=== PATIENT | female | born 2000 | race Caucasian/White ===

== ENCOUNTER → 2020-09-24 | Outpatient (CLI) | payer OTHER ==
[~2020-09-24] MED LIST: BUPR150T8 PO; HYDR-2761 PO; METF500T16 PO; MISO200T16 PO; NORE-91 PO
[2020-09-24 10:53] LABS: BASO % 0 % (0-3); EOS # 0.1 x10^3/uL (0.0-0.7); EOS % 1 % (0-3); HEMATOCRIT 30.6 % (36.0-47.0); HEMOGLOBIN 9.3 g/dL (12.0-15.5); LYMPH # 3.8 x10^3/uL (1.0-4.8); LYMPH % 29 % (24-48); MEAN CORPUSCULAR HEMOGLOBIN 20 pg (25-35); MEAN CORPUSCULAR HGB CONC 30 g/dL (31-37); MEAN CORPUSCULAR VOLUME 65 fL (79-100); MONO # 0.7 x10^3/uL (0.0-1.1); MONO % 5 % (0-9); NEUT # 8.7 x10^3/uL (1.8-7.7); NEUT % 65 % (31-73); PLATELET COUNT 555 x10^3/uL (140-400); RED CELL DISTRIBUTION WIDTH 16.1 % (11.5-14.5); WHITE BLOOD COUNT 13.3 x10^3/uL (4.0-11.0)
[2020-09-24 12:05] LABS: ANISOCYTOSIS PRESENT; HYPOCHROMIA PRESENT; MICROCYTOSIS PRESENT; PLT ESTIMATE INCREASED (ADEQUATE)
== END ==
LOC: SURGPAT 10:18
PROVIDERS: ATTEND Obstetrics & Gynecology
DX: Z01.818 Encounter for other preprocedural examination (principal)
CPT/HCPCS: 36415; 85025

== ENCOUNTER 2020-09-29 06:03 | Day surgery (SDC) | payer SELFPAY ==
[~2020-09-29 06:03] MED LIST changes: -HYDR-2761 PO; +HYDROmorphone 2 MG/ML VIAL IVP PRN; +IV RINGERS,LACTATED 1000ML 1,000 ML IV SCH; +MORPHINE SULFATE 2 MG/ML VIAL. IVP PRN; +PROCHLORPERAZINE 10 MG/2 ML VIAL. IVP PRN; +fentaNYL PF VIAL 100 MCG/2 ML VIAL IVP PRN
[2020-09-29] MEDS ORDERED: INSULIN LISPRO 100 UNIT/ML 3ML VIAL for OP,RR ONLY. SQ PRN (06:45)
[2020-09-29] MEDS ORDERED: INSULIN LISPRO 100 UNIT/ML 3ML VIAL for OP,RR ONLY. SQ ONE (06:50)
[2020-09-29] MEDS ORDERED: SEVOFLURANE 61 TO 120 MINUTES. IH ONE (07:01)
[2020-09-29] MEDS ORDERED: fentaNYL PF VIAL 100 MCG/2 ML VIAL ONE ×2 (07:01→09:01)
[2020-09-29] MEDS ORDERED: LIDOCAINE 2% PF 5 ML VIAL. ONE (07:02)
[2020-09-29] MEDS ORDERED: PROPOFOL 10 MG/ML (20ML) VIAL. IV ONE (07:02)
[2020-09-29] MEDS ORDERED: DEXAMETHASONE SOD PHOS 4 MG/ML VIAL ONE (07:02)
[2020-09-29] MEDS ORDERED: MIDAZOLAM HCL/PF 2 MG/2 ML VIAL. ONE (07:02)
[2020-09-29] MEDS ORDERED: ONDANSETRON PF 4 MG/2 ML VIAL. ONE (07:02)
[2020-09-29] MEDS ORDERED: MAG HYDROX/ALUMINUM HYD/SIMETH 30 ML ORAL.SUSP PO PRN (08:45)
[2020-09-29] MEDS ORDERED: NALOXONE 0.4 MG/ML VIAL. IV PRN (08:45)
[2020-09-29] MEDS ORDERED: CALCIUM CARBONATE 500 MG TAB.CHEW PO PRN (08:45)
[2020-09-29] MEDS ORDERED: SIMETHICONE 80 MG TAB.CHEW PO PRN (08:45)
[2020-09-29] MEDS ORDERED: 0.9 % SODIUM CHLORIDE 10 ML DISP.SYRIN. IV PRN (08:45)
[2020-09-29] MEDS ORDERED: diphenhydrAMINE 50 MG/ML VIAL IV PRN (08:45)
[2020-09-29] MEDS ORDERED: HYDROcodone/APAP 5/325MG 1 TAB TABLET PO PRN (08:45)
[2020-09-29] MEDS ORDERED: diphenhydrAMINE HCL 25 MG CAPSULE PO PRN (08:45)
--- NOTE | 2020-09-29 08:45 | PDOC ---
BRIEF OPERATIVE NOTE Date: Sep 29, 2020 Pre-Op Diagnosis DUB with anemia Post-Op Diagnosis same Procedure Performed hysteroscopy D&C with myosure reach Surgeon Dr. Evelia Crook Anesthesiologist Dr. Levy Anesthesia Type: General Blood Loss 10cc IV Fluid see anesthesia records Urine Output straight cath prior Specimens Obtained endometrial currettings Findings uterus 8cm with thickened fluffy white tissue; no fibroids or uterine abnormalities seen Complications none Operative Note fluid def 250cc cut time 6:02 [id number] EVELIA CROOK MD Sep 29, 2020 08:45
[2020-09-29] MEDS ORDERED: HYDR-2761 PO (08:56)
--- NOTE | 2020-09-29 09:02 | OP ---
DATE OF SURGERY: 09/29/2020 PREOPERATIVE DIAGNOSES: Dysfunctional uterine bleeding with anemia and endometrial thickening on sonogram. POSTOPERATIVE DIAGNOSES: Dysfunctional uterine bleeding with anemia and endometrial thickening on sonogram. PROCEDURE: Hysteroscopy, D and C with MyoSure REACH. SURGEON: Jude Crook MD ESTATE ADMINISTRATOR: OR personnel. ANESTHESIOLOGIST: Ulises Levy MD ANESTHESIA: General. BLOOD LOSS: 5-10 mL. URINE OUTPUT: With a straight cath prior to procedure. INTRAVENOUS FLUIDS: Please see anesthesia records. SPECIMEN: Endometrial curettings. FINDINGS: A uterus that sounded to 8 cm with a thickened fluffy white tissue. No gross uterine abnormalities were seen. No fibroids, no distortion in the uterine wall. COMPLICATIONS: None. DESCRIPTION OF PROCEDURE: This patient was taken to the operating room where general anesthesia was placed. The patient was placed in a dorsal lithotomy position in Terry stirrups. The patient's vagina was prepped and draped in the normal sterile fashion and a straight cath urine was done prior to my arrival. Upon my arrival, a timeout was performed. Once everyone agreed on the patient, the site, the procedure, the procedure was initiated. An open bivalve speculum was placed in the patient's vagina. Single-tooth tenaculum was used to grasp the anterior lip of the cervix. The Hegar dilators were used to dilate up to a 5-6 and the 7 easily passed for the scope. She sounded to 8 cm. At this point, the MyoSure scope was primed, white balanced, and placed in with the above findings. The MyoSure REACH was used and placed through the operating channel and a D and C was done under direct visualization. Once it was done, both tubal ostia were seen. Again, no gross uterine abnormalities, no fibroids, just thickened white fluffy tissue was seen, but we were able to clean out the endometrial cavity and the endometrial curettings will be sent for pathology. Once all of this was done, the procedure was ended. The tenaculum was removed. There was scant bleeding from the tenaculum sites and all counts were correct by OR personnel. The patient was awakened from the anesthesia and is being brought to recovery room in stable condition. JUDE CROOK MD DR: CHRISTELLE/lazarus JOB#: [id number] / [id number]
[2020-09-29] MEDS: fentaNYL PF VIAL 100 MCG/2 ML VIAL IVP PRN ×2 (09:05→09:26)
[2020-09-29 09:34] VITALS: BP 137/70
--- NOTE | 2020-10-01 15:12 | PATHOLOGY ---
[facility] Accession Number: [id number] . 01 Material submitted: . endometrium - ENDOMETRIAL CURETTINGS . 01 Clinical history: . MENORRHAGIA, POLYCYSTIC OVARIAN SYNDROME, ANEMIA DYSFUNCTIONAL UTERINE BLEEDING HYSTEROSCOPY, DILATION AND CURETTAGE . 02 Diagnosis: Endometrial curettings: - Irregular and polypoid segments of inactive to focally disordered weakly proliferative endometrium. - Segments of myometrial tissue and endocervical mucosa. (JPM:[facility] 10/01/2020) [facility] 10/01/2020 1204 Local . 02 Comment: There is no atypia or evidence of malignancy. (JPM:[facility] 10/01/2020) . 02 Electronically signed: . Nima Chahal MD, Pathologist NPI- [id number] . 01 Gross description: . The specimen is received in formalin, labeled "Tito Chaidez, endometrial curettings". Received are multiple segments of pale walsh tissue admixed with blood coagulum measuring 4.0 x 3.1 x 0.6 cm in aggregate dimensions. The specimen is filtered and entirely submitted in cassettes A1 through A3. ([facility]; 09/30/2020) QA/QA 09/30/2020 1153 Local . 02 Pathologist provided ICD-10: N85.9, N93.9 . 02 CPT . 884836 Specimen Comment: A courtesy copy of this report has been sent to [phone], [phone] Specimen Comment: [id number] Specimen Comment: Report sent to / DR VALERA Performed at: [address], [place], [place] [id number] MD Israel Tovar MD Phone: [phone] Performed at: 02 [facility] [address] [place], [place] [id number] MD Nima Chahal MD Phone: [phone]
== END 2020-09-29 10:06 | disposition home or self-care (01) ==
LOC: SURG 06:03 → EDUNIT# 07:30 → SURG 10:06
PROVIDERS: ATTEND Obstetrics & Gynecology
DX: N93.8 Other specified abnormal uterine and vaginal bleeding (principal); R93.89 Abnormal findings on diagnostic imaging of other specified body structures; D64.9 Anemia, unspecified; N85.9 Noninflammatory disorder of uterus, unspecified; E11.9 Type 2 diabetes mellitus without complications; G47.30 Sleep apnea, unspecified; E66.9 Obesity, unspecified; F41.9 Anxiety disorder, unspecified; F32.9 Major depressive disorder, single episode, unspecified; Z79.84 Long term (current) use of oral hypoglycemic drugs; Z79.899 Other long term (current) drug therapy; Z98.890 Other specified postprocedural states; Z20.822 Contact with and (suspected) exposure to COVID-19
CPT/HCPCS: 58558; 81025; 82962; 87426; A4930; J1100; J1815; J2250; J2405; J2704; J3010; U0003; U0005; 88305